=== PATIENT | female | born 1965 ===

== ENCOUNTER 2018-07-09 10:29 | Emergency (ER) | payer OTHER ==
[2018-07-09 10:32] VITALS: BMI 30.2
[2018-07-09 10:34] VITALS: BP 127/77; PULSE 89; RESP 17; TEMP 98.8; O2SAT 100
[2018-07-09] MEDS ORDERED: DiphenhydrAMINE 50 mg/ml Inj IM STA (11:12)
--- NOTE | 2018-07-09 11:14 | ED PDOC ---
HPI: Skin/Bite Injury Time Seen by Provider: 07/09/18 10:43 Chief Complaint (Nursing): Abnormal Skin Integrity Chief Complaint (Provider): Abnormal Skin Integrity History Per: Patient History/Exam Limitations: no limitations Onset/Duration Of Symptoms: Other (weeks) Additional Complaint(s): 53 years old female presents to ER for evaluation of itchiness to her psoriasis for several weeks after her PMD stopped giving her Xanx and advised her to see psychiatrist before having a refill. Patient reports Xanax used to help her sleep and relieve the itching. She states she took Benadryl with no relief. Patient reports taking Otezla for psoriasis that was prescribed to her by a physical science technician, Dr. Maddox, who informed her she will need injection for psoriasis. She denies SI/HI, hallucinations, fever, chest pain and shortness of breath. PMD: Grant Rubio Past Medical History Reviewed: Historical Data, Nursing Documentation, Vital Signs Vital Signs: Last Vital Signs Temp 98.8 F 07/09/18 10:33 Pulse 89 07/09/18 10:33 Resp 17 07/09/18 10:33 BP 127/77 07/09/18 10:33 Pulse Ox 100 07/09/18 10:33 - Medical History PMH: Anxiety, Depression, Diabetes, Fractures (RIGHT ANKLE), Gastritis, HTN, Hypercholesterolemia Denies: Chronic Kidney Disease - Surgical History Surgical History: Cholecystectomy, Endoscopy - Family History Family History: States: Unknown Family Hx - Home Medications Home Medications: Ambulatory Orders Medication Instructions Recorded Insulin Aspart/Insulin Aspar 25 units SC BID 12/20/13 [Novolog Mix 70/30 (70/30 units/ml) 10 ml] Insulin Aspart/Insulin Aspar 30 units SC ACD 03/21/16 [Novolog Mix 70/30 (70/30 units/ml)] Losartan Potassium 25 mg PO DAILY 03/21/16 Metronidazole [Flagyl] 500 mg PO Q8 03/21/16 Atorvastatin [Lipitor] 20 mg PO DAILY 04/01/16 Fluoxetine HCl 60 mg PO DAILY 04/01/16 Omeprazole 40 mg PO DAILY 04/01/16 hydrOXYzine HCl [Atarax] 50 mg PO HS PRN #10 tab 07/09/18 - Allergies Allergies/Adverse Reactions: Allergies Allergy/AdvReac Type Severity Reaction Status Date / Time FISH Allergy RASH Verified 12/23/15 13:18 Penicillins Allergy RASH Verified 12/23/15 13:18 Review of Systems ROS Statement: Except As Marked, All Systems Reviewed And Found Negative Constitutional: Negative for: Fever Cardiovascular: Negative for: Chest Pain Respiratory: Negative for: Shortness of Breath Skin: Positive for: Other (Itching to psoriasis ) Psych: Negative for: Suicidal ideation (or homicidal), Other (Hallucinations) Physical Exam - Reviewed Nursing Documentation Reviewed: Yes Vital Signs Reviewed: Yes - Physical Exam Appears: Positive for: Non-toxic, No Acute Distress (Calm, happy and cooperative ) Skin: Positive for: Warm (Well demarcated erythematous plaques without surrounding erythema or breaking in skin integrity on bilateral lower legs, elbows and lower back ) Respiratory: Positive for: Normal Breath Sounds. Negative for: Wheezing Neurologic/Psych: Positive for: Alert, Oriented (x3) - ECG O2 Sat by Pulse Oximetry: 100 (RA) Pulse Ox Interpretation: Normal Medical Decision Making Medical Decision Making: Time: 1112 Initial Plan: --Benadryl 50 mg IM Patient is advised to follow up with physical science technician, Dr. Maddox. ----- Scribe Attestation: Documented by Mia Gray, acting as a scribe for LUCIANO Sylvester Provider Scribe Attestation: All medical record entries made by the Scribe were at my direction and personally dictated by me. I have reviewed the chart and agree that the record accurately reflects my personal performance of the history, physical exam, medical decision making, and the department course for this patient. I have also personally directed, reviewed, and agree with the discharge instructions and disposition. Disposition - Clinical Impression Clinical Impression: Psoriasis - Patient ED Disposition Is Patient to be Admitted: No - Disposition Referrals: [facility] [Outside] Disposition: Routine/Home Disposition Time: 11:13 Condition: STABLE Additional Instructions: CAMERON VINCENT, thank you for letting us take care of you today. Your provider was Raymond Leroy MD and you were treated for SKIN IRRITATION. The emergency medical care you received today was directed at your acute symptoms. If you were prescribed any medication, please fill it and take as directed. It may take several days for your symptoms to resolve. Return to the Emergency Department if your symptoms worsen, do not improve, or if you have any other problems. Please contact your doctor or call one of the physicians/clinics you have been referred to that are listed on the Patient Visit Information form that is included in your discharge packet. Bring any paperwork you were given at discharge with you along with any medications you are taking to your follow up visit. Our treatment cannot replace ongoing medical care by a primary care provider outside of the emergency department. Thank you for allowing the [facility] team to be part of your care today. If you had an X-Ray or CT scan: A Radiologist will review the ED reading if any change in treatment is needed we will contact you. If you had a blood, urine, or wound culture: It will take several days for the results, if any change in treatment is needed we will contact you. If you had an STI test: It will take 48 hours for the results. Please call after 1 week if you have not heard back. Prescriptions: hydrOXYzine HCl [Atarax] 50 mg PO HS PRN #10 tab PRN Reason: Itching / Pruritus Instructions: Psoriasis (DC) Forms: [facility] ([place])
[2018-07-09] MEDS ORDERED: DiphenhydrAMINE 50 mg/ml Inj ONE (11:17)
== END 2018-07-09 11:40 | disposition home or self-care (01) ==
LOC: H.ER 10:29
DX: L40.9 Psoriasis, unspecified (principal); E11.9 Type 2 diabetes mellitus without complications; E78.00 Pure hypercholesterolemia, unspecified; I10 Essential (primary) hypertension; Z79.4 Long term (current) use of insulin; Z88.0 Allergy status to penicillin
CPT/HCPCS: 96372; 99282; J1200

== ENCOUNTER 2018-10-12 10:05 | Emergency (ER) | payer OTHER ==
[2018-10-12 10:13] VITALS: TEMP 97.4; O2SAT 99; BMI 29.2
[2018-10-12] MEDS ORDERED: Sodium Chloride 0.9% 1,000 ML IV STA (11:06)
--- NOTE | 2018-10-12 11:09 | ED PDOC ---
HPI:Nausea, Vomiting, Diarrhea Time Seen by Provider: 10/12/18 10:36 Chief Complaint (Nursing): Abdominal Pain Chief Complaint (Provider): Vomiting History Per: Patient History/Exam Limitations: no limitations Additional Complaint(s): Pt reports chills and vomiting X 1 day, "little" abdominal pain. Denies fever, diarrhea, CP, SOB. Past Medical History Reviewed: Nursing Documentation, Vital Signs Vital Signs: Last Vital Signs Temp 97.4 F L 10/12/18 10:11 Pulse 65 10/12/18 10:11 Resp BP 103/70 10/12/18 10:11 Pulse Ox 99 10/12/18 10:11 - Medical History PMH: Anxiety, Depression, Diabetes, Fractures (RIGHT ANKLE), Gastritis, HTN, Hypercholesterolemia Denies: Chronic Kidney Disease - Surgical History Surgical History: Cholecystectomy, Endoscopy Other surgeries: Splenectomy, pancreatic tumor removal (not CA) - Family History Family History: States: Unknown Family Hx - Living Arrangements Living Arrangements: With Family - Social History Current smoker - smoking cessation education provided: No Alcohol: None - Home Medications Home Medications: Ambulatory Orders Medication Instructions Recorded Insulin Aspart/Insulin Aspar 25 units SC BID 12/20/13 [Novolog Mix 70/30 (70/30 units/ml) 10 ml] Insulin Aspart/Insulin Aspar 30 units SC ACD 03/21/16 [Novolog Mix 70/30 (70/30 units/ml)] Losartan Potassium 25 mg PO DAILY 03/21/16 Metronidazole [Flagyl] 500 mg PO Q8 03/21/16 Atorvastatin [Lipitor] 20 mg PO DAILY 04/01/16 Fluoxetine HCl 60 mg PO DAILY 04/01/16 Omeprazole 40 mg PO DAILY 04/01/16 hydrOXYzine HCl [Atarax] 50 mg PO HS PRN #10 tab 07/09/18 Ondansetron ODT [Zofran ODT] 4 mg PO Q8H PRN #20 odt 10/12/18 - Allergies Allergies/Adverse Reactions: Allergies Allergy/AdvReac Type Severity Reaction Status Date / Time FISH Allergy RASH Verified 12/23/15 13:18 Penicillins Allergy RASH Verified 12/23/15 13:18 Review of Systems Constitutional: Positive for: Chills. Negative for: Fever Cardiovascular: Negative for: Chest Pain, Palpitations Respiratory: Negative for: Cough, Shortness of Breath Gastrointestinal: Positive for: Nausea, Vomiting, Abdominal Pain. Negative for: Diarrhea Genitourinary Female: Negative for: Dysuria, Hematuria, Vaginal Discharge, Va ginal Bleeding Musculoskeletal: Negative for: Back Pain Skin: Negative for: Rash, Lesions Neurological: Negative for: Headache, Dizziness Physical Exam - Reviewed Nursing Documentation Reviewed: Yes Vital Signs Reviewed: Yes - Physical Exam Appears: Positive for: Well, No Acute Distress Head Exam: Positive for: ATRAUMATIC, NORMAL INSPECTION Skin: Positive for: Normal Color, Warm, Dry Eye Exam: Positive for: Normal appearance, EOMI, PERRL Cardiovascular/Chest: Positive for: Regular Rate, Rhythm Respiratory: Positive for: Normal Breath Sounds. Negative for: Rales, Rhonchi, Wheezing Gastrointestinal/Abdominal: Positive for: Bowel Sounds, Soft, Tenderness (Mid- abdomen). Negative for: Guarding, Rebound Back: Positive for: Normal Inspection. Negative for: L CVA Tenderness, R CVA Tenderness Extremity: Positive for: Normal ROM Neurologic/Psych: Positive for: Alert, Oriented - Laboratory Results Result Diagrams: 10/12/18 11:45 10/12/18 11:45 - ECG O2 Sat by Pulse Oximetry: 99 Medical Decision Making Medical Decision Makin yo female with chills, vomiting and abdominal pain. - labs - EKG - CXR - CT abd/pelvis - IVF - Zofran Accession No. : [id number] Patient Name / ID : BINU Keen / [id number] Exam Date : 10/12/2018 11:45:25 ( Approved ) Study Comment : Sex / Age : F / 53Y Creator : Matt García MD Dictator : Matt García MD Resource Specialist Teacher : Assistant City Attorney : Matt García MD Approver2 : Report Date : 10/12/2018 14:59:52 My Comment : Date of service: 10/12/2018 HISTORY: Abd pain COMPARISON: Geno in made with prior chest radiograph 11/22/2008 TECHNIQUE: Chest PA and lateral FINDINGS: LUNGS: No active pulmonary disease. PLEURA: No significant pleural effusion identified. No pneumothorax apparent. CARDIOVASCULAR: No aortic atherosclerotic calcification present. Normal cardiac size. No pulmonary vascular congestion. OSSEOUS STRUCTURES: Minor multilevel degenerative spondylosis of the thoracic spine.. VISUALIZED UPPER ABDOMEN: Normal. OTHER FINDINGS: Note made of metallic clips left upper overlying left upper quadrant of the abdomen; clinical correlation with surgical history IMPRESSION: No active disease. Accession No. : [id number] Patient Name / ID : BINU Keen / [id number] Exam Date : 10/12/2018 12:47:09 ( Approved ) Study Comment : Sex / Age : F / 53Y Creator : Dom Barber MD Dictator : Dom Barber MD Resource Specialist Teacher : Assistant City Attorney : Dom Barber MD Approver2 : Report Date : 10/12/2018 13:37:38 My Comment : Date of service: 10/12/2018 PROCEDURE: CT Abdomen and Pelvis with contrast HISTORY: Abd pain, vomiting COMPARISON: Not available TECHNIQUE: Contrast dose: 95 mL Omnipaque 300 Radiation dose: Total exam DLP = 572.43 mGy-cm. This CT exam was performed using one or more of the following dose reduction techniques: Automated exposure control, adjustment of the mA and/or kV according to patient size, and/or use of iterative reconstruction technique. FINDINGS: LOWER THORAX: Unremarkable LIVER: Unremarkable. No gross lesion or ductal dilatation. GALLBLADDER AND BILE DUCTS: Cholecystectomy PANCREAS: Distal pancreatectomy. No mass or ductal dilatation. No peripancreatic fluid. SPLEEN: Status post splenectomy. ADRENALS: Unremarkable. No mass. KIDNEYS AND URETERS: Unremarkable. No hydronephrosis. No solid mass. VASCULATURE: Unremarkable. No aortic aneurysm. Noncalcified atheromatous plaque is seen in the distal thoracic aorta. No calcified atheromatous plaque identified. BOWEL: Unremarkable. No obstruction. No gross mural thickening. APPENDIX: Normal appendix. PERITONEUM: Unremarkable. No free fluid. No free air. LYMPH NODES: Unremarkable. No enlarged lymph nodes. BLADDER: Unremarkable. REPRODUCTIVE: Normal uterus. BONES: No acute fracture. OTHER FINDINGS: None. IMPRESSION: Status post cholecystectomy, distal pancreatectomy and splenectomy. No acute abnormality. Disposition - Clinical Impression Clinical Impression: Vomiting, Abdominal pain in female - Disposition Referrals: Grant Rubio MD [Family Provider] - Disposition: Routine/Home Disposition Time: 16:43 Condition: IMPROVED Prescriptions: Ondansetron ODT [Zofran ODT] 4 mg PO Q8H PRN #20 odt PRN Reason: Nausea/Vomiting Instructions: Acute Abdomen (Belly Pain), Nausea and Vomiting, Adult Forms: [facility] ([place]) Print Language: CITIZEN OF [place]
[2018-10-12 11:50] LABS: VENOUS BLOOD GAS BASE EXCESS -0.2 mmol/L (0.0-2.0); VENOUS BLOOD GAS PCO2 44 mmHg (40-60); VENOUS BLOOD GAS PO2 37 mm/Hg (30-55); VENOUS BLOOD PH 7.37 (7.32-7.43)
[2018-10-12 11:59] LABS: BASO # 0.1 K/uL (0.0-0.2); BASO % 0.5 % (0.0-2.0); EOS % 0.2 % (0.0-4.0); HEMOGLOBIN 12.7 g/dL (12.0-16.0); LYMPH # 0.6 K/uL (1.0-4.3); LYMPH % 5.9 % (20.0-40.0); MEAN CELL VOLUME 89.4 fl (81.0-99.0); MEAN CORPUSCULAR HEMOGLOBIN 29.3 pg (27.0-31.0); MEAN CORPUSCULAR HGB CONC 32.7 g/dL (33.0-37.0); MEAN PLATELET VOLUME 8.4 fl (7.2-11.7); MONO # 0.4 K/uL (0.0-0.8); MONO % 3.8 % (0.0-10.0); NEUT # 9.5 K/uL (1.8-7.0); NEUT % 89.6 % (50.0-75.0); NRBC % 0.1 % (0.0-0.0); PLATELET COUNT 372 K/uL (130-400); RBC 4.35 Mil/uL (3.80-5.20); RED CELL DISTRIBUTION WIDTH 13.9 % (11.5-14.5); WHITE BLOOD COUNT 10.6 K/uL (4.8-10.8)
[2018-10-12 12:06] LABS: PROTHROMBIN TIME 11.6 Seconds (9.8-13.1)
[2018-10-12 12:09] LABS: PARTIAL THROMBOPLASTIN TIME 29.7 Seconds (25.6-37.1)
[2018-10-12 12:12] LABS: ALB/GLOB RATIO 1.2 (1.0-2.1); ALT/SGPT 45 U/L (9-52); AST/SGOT 45 U/L (14-36); BLOOD UREA NITROGEN 17 mg/dl (7-17); CALCIUM 9.2 mg/dL (8.4-10.2); GFR NON-AFRICAN AMERICAN > 60; LIPASE 99 U/L (23-300)
[2018-10-12 12:23] LABS: BANDS 1 % (0-2); LYMPHOCYTE 5 % (20-50); MONOCYTE 2 % (0-10); NEUTROPHIL 91 % (42-75); PLATELET ESTIMATE NORMAL (NORMAL); REACTIVE LYMPHOCYTES 1 % (0-0); TOTAL CELLS COUNTED 100
[2018-10-12] MEDS ORDERED: Iohexol 300 100 ML IJ ONE (12:53)
[2018-10-12] MEDS ORDERED: Sodium Chloride 0.9% 50 ML IV ONE (12:53)
--- NOTE | 2018-10-12 13:41 | CT ---
Date of service: 10/12/2018 PROCEDURE: CT Abdomen and Pelvis with contrast HISTORY: Abd pain, vomiting COMPARISON: Not available TECHNIQUE: Contrast dose: 95 mL Omnipaque 300 Radiation dose: Total exam DLP = 572.43 mGy-cm. This CT exam was performed using one or more of the following dose reduction techniques: Automated exposure control, adjustment of the mA and/or kV according to patient size, and/or use of iterative reconstruction technique. FINDINGS: LOWER THORAX: Unremarkable LIVER: Unremarkable. No gross lesion or ductal dilatation. GALLBLADDER AND BILE DUCTS: Cholecystectomy PANCREAS: Distal pancreatectomy. No mass or ductal dilatation. No peripancreatic fluid. SPLEEN: Status post splenectomy. ADRENALS: Unremarkable. No mass. KIDNEYS AND URETERS: Unremarkable. No hydronephrosis. No solid mass. VASCULATURE: Unremarkable. No aortic aneurysm. Noncalcified atheromatous plaque is seen in the distal thoracic aorta. No calcified atheromatous plaque identified. BOWEL: Unremarkable. No obstruction. No gross mural thickening. APPENDIX: Normal appendix. PERITONEUM: Unremarkable. No free fluid. No free air. LYMPH NODES: Unremarkable. No enlarged lymph nodes. BLADDER: Unremarkable. REPRODUCTIVE: Normal uterus. BONES: No acute fracture. OTHER FINDINGS: None. IMPRESSION: Status post cholecystectomy, distal pancreatectomy and splenectomy. No acute abnormality.
--- NOTE | 2018-10-12 15:03 | RAD ---
Date of service: 10/12/2018 HISTORY: Abd pain COMPARISON: Geno in made with prior chest radiograph 11/22/2008 TECHNIQUE: Chest PA and lateral FINDINGS: LUNGS: No active pulmonary disease. PLEURA: No significant pleural effusion identified. No pneumothorax apparent. CARDIOVASCULAR: No aortic atherosclerotic calcification present. Normal cardiac size. No pulmonary vascular congestion. OSSEOUS STRUCTURES: Minor multilevel degenerative spondylosis of the thoracic spine.. VISUALIZED UPPER ABDOMEN: Normal. OTHER FINDINGS: Note made of metallic clips left upper overlying left upper quadrant of the abdomen; clinical correlation with surgical history IMPRESSION: No active disease.
[2018-10-12] MEDS ORDERED: Sodium Chloride 0.9% 500 ML IV STA (15:35)
[2018-10-12 15:56] LABS: SQUAMOUS EPITHIAL 5 /hpf (0-5); URINE BACTERIA RARE (<OCC); URINE BILIRUBIN NEGATIVE (NEGATIVE); URINE BLOOD NEGATIVE (NEGATIVE); URINE CLARITY SLIGHTY-CLOUDY (Clear); URINE COLOR YELLOW (YELLOW); URINE GLUCOSE (UA) 150 mg/dL (NEGATIVE); URINE LEUKOCYTE ESTERASE NEG Leu/uL (Negative); URINE PROTEIN NEGATIVE (NEGATIVE); URINE UROBILINOGEN 0.2-1.0 mg/dL (0.2-1.0)
[2018-10-12 18:27] VITALS: BP 108/72; PULSE 68; RESP 17
--- NOTE | 2018-10-12 18:59 | CARD ---
APPROVED REPORT Date of service: 10/12/2018 EKG Measurement Heart [id number] <Conclusion> Normal sinus rhythm Normal ECG
== END 2018-10-12 15:05 | disposition home or self-care (01) ==
LOC: H.ER 10:05
DX: R10.9 Unspecified abdominal pain (principal); R11.10 Vomiting, unspecified
CPT/HCPCS: 71046; 74177; 80053; 81003; 82803; 82948; 83690; 85025; 85610; 85730; 87040; 87804; 93005; 96374; 99284; J2405; J7030; Q9967